=== PATIENT | female | born 1980 | race Caucasian/White ===

== ENCOUNTER 2021-07-16 14:38 | Outpatient (CLI) | payer BC, SELFPAY ==
--- NOTE | ~2021-07-16 | MM_ITS ---
EXAMINATION: MM screening josie BI w chuckie HISTORY: Screening TECHNIQUE: Craniocaudal and mediolateral oblique 3-D tomosynthesis images were obtained and synthetic 2-D images were generated. CAD analysis was submitted and interpreted. COMPARISON: No prior mammogram is available for comparison at this institution. BREAST PARENCHYMAL COMPOSITION: The breasts are heterogeneously dense, which may obscure small masses . FINDINGS: There is a focal subareolar mass of the left breast. There are no suspicious masses, calcif ications or architectural distortion in the right breast to suggest malignancy. IMPRESSION: 1. Subareolar mass of the left breast. 2. Additional mammographic views and possible breast ultrasound are recommended. BI-RADS Category 0: Incomplete: Needs additional imaging evaluation. Reviewed, dictated and finalized at location A. [facility] IMPRESSION: 1. Subareolar mass of the left breast. 2. Additional mammographic views and possible breast ultrasound are recommended . BI-RADS Category 0: Incomplete: Needs additional imaging evaluation.
== END 2021-07-16 14:39 | disposition home or self-care (01) ==
PROVIDERS: PCP Physician Assistant; Visit Provider Obstetrics & Gynecology Gynecology
DX: Z12.31 Encounter for screening mammogram for malignant neoplasm of breast (principal); R92.8 Other abnormal and inconclusive findings on diagnostic imaging of breast
CPT/HCPCS: 77063; 77067

== ENCOUNTER → 2021-07-29 08:46 | Outpatient (CLI) | payer BC, SELFPAY ==
--- NOTE | ~2021-07-29 | MMUS_ITS ---
EXAMINATION: MM diagnostic josie LT w chuckie, US breast LT complete HISTORY: Subareolar left breast mass reported on 07/17/2019 screening mammogram TECHNIQUE: Additional 3-D tomosynthesis images of the left breast were performed and synthetic 2-D im ages were generated. CAD analysis was submitted and interpreted. High resolution complete left breast ultrasound including all 4 quadrants and subareolar area was performed. COMPARISON: 07/16/2021 bilateral screening mammogram FINDINGS: MAMMOGRAPHIC FINDINGS: No suspicious mass or architectural distortion, skin thickening or retraction or any malignant calcif ication is noted. The heterogeneously dense stroma may obscure masses. Complete ultrasound examination was therefore pe rformed. ULTRASOUND: 12:00 3 cm from nipple: 3.8 x 2.5 x 3.9 mm sonolucency without internal vascularity or posterior shad owing, likely benign 1:00 3 cm from nipple: 3.8 x 3.2 x 6.1 mm sonolucency with through transmission, consistent with smal l cyst 9:00 3 cm from nipple: Circumscribed 7.5 x 6.1 x 7.4 mm hypoechoic solid lesion with shadowing, witho ut internal vascularity, likely benign. Six-month follow-up is recommended. 10:00 4 cm from nipple: 2.7 mm hypoechoic circumscribed lesion without shadowing or internal vascular ity IMPRESSION: 1. Probably benign findings 2. 6 month diagnostic left mammogram and left breast ultrasound follow-up are recommended BI-RADS category 3, probably benign findings. Reviewed, dictated and finalized at location A. IMPRESSION: 1. Probably benign findings 2. 6 month diagnostic left mammogram and left breast ultrasound follow-up are r ecommended BI-RADS category 3, probably benign findings.
== END ==
PROVIDERS: Visit Provider Obstetrics & Gynecology Gynecology
DX: R92.8 Other abnormal and inconclusive findings on diagnostic imaging of breast (principal)
CPT/HCPCS: 76641; 77061; 77065; G0279

== ENCOUNTER → 2022-01-28 08:51 | Outpatient (CLI) | payer BC, SELFPAY ==
--- NOTE | ~2022-01-28 | MMUS_ITS ---
EXAMINATION: MM diagnostic josie LT w chuckie, US breast LT limited HISTORY: Six-month follow-up for probably benign left breast mass TECHNIQUE: Craniocaudal, mediolateral, and mediolateral oblique 3-D tomosynthesis images of the left breast were performed and synthetic 2-D images were generated. CAD analysis was submitted and interpr eted. High resolution limited left breast ultrasound was performed. COMPARISON: 07/29/2021, 07/16/2021 BREAST PARENCHYMAL COMPOSITION: The breasts are heterogeneously dense, which may obscure small masses . FINDINGS: MAMMOGRAPHIC FINDINGS: There is an approximately 10 mm oval, obscured mass in the middle third of the central breast 3 cm fr om the nipple best appreciated on the craniocaudal view. No suspicious calcification or architectural distortion are identified. ULTRASOUND: There is a 9 mm x 6 mm oval, hypoechoic mass with mildly lobulated margins, posterior acoustic shadow ing, and no internal vascularity at the 9:00 location 3 cm from the nipple which appears to have slig htly increased in size. Additional cysts are noted at the 9:00 location 3 cm from the nipple. A 3 mm hypoechoic mass at the 10:00 location 4 cm from the nipple is stable. IMPRESSION: 1. Indeterminate mass at the 9:00 location 3 cm from the nipple. 2. Ultrasound-guided biopsy is recommended. BI-RADS category 4, suspicious findings. Reviewed, dictated and finalized at location A. IMPRESSION: 1. Indeterminate mass at the 9:00 location 3 cm from the nipple. 2. Ultrasound-guided biopsy is recommended. BI-RADS category 4, suspicious findings.
== END ==
PROVIDERS: PCP Physician Assistant; Visit Provider Obstetrics & Gynecology Gynecology
DX: N60.02 Solitary cyst of left breast (principal); R92.8 Other abnormal and inconclusive findings on diagnostic imaging of breast
CPT/HCPCS: 76642; 77061; 77065; G0279

== ENCOUNTER 2022-02-11 10:14 | Outpatient (CLI) | payer BC, SELFPAY ==
--- NOTE | ~2022-02-11 | MMUS_ITS ---
EXAMINATION: US breast biopsy LT w image, MM post biopsy invasive LT DATE: 02/11/2022 11:40 (accession [id number]), 02/11/2022 11:30 (accession [id number]) INDICATION: Indeterminate mass of the inner left breast at the 9:00 location. Ultrasound-guided core biopsy is requested to evaluate for malignancy. TECHNIQUE AND FINDINGS: The risks and potential benefits of the procedure were discussed with the patient including bleeding and infection. A time out was performed. The skin of the left breast was prepared and draped in usual sterile fashion. 1% lidocaine was used for superficial anesthesia. 1% lidocaine with epinephrine was used for deep anesthesia. A vacuum-assisted biopsy needle was advanced through to the outer edge of the region of interest from an inferior approach utilizing sonographic guidance. A total of two tissue core samples were obtaine d through the lesion. The lesion was no longer visible after the second pass. A tissue marker clip wa s then placed at the biopsy site. Hemostasis was achieved. A sterile bandage was applied. The patient tolerated procedure well and there was no evidence of immediate complication. The patient was given verbal instructions to return to the Emergency Department in the event of severe breast pa in or rapid breast enlargement. A two view left breast mammogram was obtained to document tissue lucia er clip placement. IMPRESSION: 1. Successful ultrasound-guided vacuum-assisted biopsy of left breast mass with tissue marker placeme nt. Reviewed, dictated and finalized at location A. IMPRESSION: 1. Successful ultrasound-guided vacuum-assisted biopsy of left breast mass with tissue marker placement.
== END 2022-02-11 10:15 | disposition home or self-care (01) ==
PROVIDERS: PCP Physician Assistant; Visit Provider Surgery
DX: N63.20 Unspecified lump in the left breast, unspecified quadrant (principal)
CPT/HCPCS: 19083; 88305; A4648

== ENCOUNTER → 2022-08-31 14:13 | Outpatient (CLI) | payer BC, SELFPAY ==
--- NOTE | ~2022-08-31 | MM_ITS ---
EXAMINATION: MM screening josie BI w chuckie HISTORY: Screening mammogram TECHNIQUE: Craniocaudal and mediolateral oblique 3-D tomosynthesis images were obtained and synthetic 2-D images were generated. CAD analysis was submitted and interpreted. COMPARISON: left breast biopsy 01/28/2022 and 07/25/2021 diagnostic left mammogram and left breast ultrasound 07/16/2021 bilateral screening mammogram BREAST PARENCHYMAL COMPOSITION: The breasts are heterogeneously dense, which may obscure small masses . FINDINGS: Right breast: There appears to be interval increased density in the upper outer right breast. Diagnos tic right mammogram is recommended, with ultrasound if required. Left breast: Biopsy marker on the left; history of prior benign left breast biopsy. There is no evidence of suspicious mass, calcification, or architectural distortion to suggest malign nora in either breast. There has been no suspicious interval change. IMPRESSION: 1. Interval increased density in the upper outer right breast since 07/16/2021 2. Diagnostic right mammogram is recommended, with ultrasound if required BI-RADS Category 0: Incomplete: Needs additional imaging evaluation. Reviewed, dictated and finalized at location A.
== END ==
PROVIDERS: PCP Physician Assistant; Visit Provider Obstetrics & Gynecology Gynecology
DX: Z12.31 Encounter for screening mammogram for malignant neoplasm of breast (principal); R92.8 Other abnormal and inconclusive findings on diagnostic imaging of breast
CPT/HCPCS: 77063; 77067

== ENCOUNTER → 2022-09-27 08:52 | Outpatient (CLI) | payer BC, SELFPAY ==
--- NOTE | ~2022-09-27 | MMUS_ITS ---
EXAMINATION: MM diagnostic josie RT w chuckie, US breast RT limited HISTORY: Focal asymmetry of the left breast on screening mammogram TECHNIQUE: Additional 3-D tomosynthesis images of the right breast were performed and synthetic 2-D i mages were generated. CAD analysis was submitted and interpreted. High resolution limited right breas t ultrasound was performed. COMPARISON: 08/31/2022, 07/17/2011 FINDINGS: MAMMOGRAPHIC FINDINGS: Focal asymmetry in the upper outer quadrant of the right breast somewhat disperses to baseline appear ance with spot compression. No suspicious mass, calcification, or architectural distortion are identi fied. ULTRASOUND: No suspicious cystic or solid mass is identified in the upper outer quadrant of the breast. Small cys ts of the breast measure up to 8 mm near the nipple. IMPRESSION: 1. No mammographic or sonographic evidence of malignancy. 2. Recommend routine screening mammography in one year. BI-RADS Category 2: Benign finding(s). Reviewed, dictated and finalized at location A. IMPRESSION: 1. No mammographic or sonographic evidence of malignancy. 2. Recommend routine screening mammography in one year. BI-RADS Category 2: Benign finding(s).
== END ==
PROVIDERS: PCP Physician Assistant; Visit Provider Obstetrics & Gynecology Gynecology
DX: R92.8 Other abnormal and inconclusive findings on diagnostic imaging of breast (principal)
CPT/HCPCS: 76642; 77061; 77065; G0279

== ENCOUNTER 2023-10-17 15:41 | Outpatient (CLI) | payer BC, SELFPAY ==
--- NOTE | ~2023-10-17 | MM_ITS ---
EXAMINATION: MM screening josie BI w chuckie HISTORY: Screening TECHNIQUE: Craniocaudal and mediolateral oblique 3-D tomosynthesis images were obtained and synthetic 2-D images were generated. CAD analysis was submitted and interpreted. COMPARISON: Comparison to multiple prior studies sequentially, with oldest reviewed study dated 07/16. BREAST PARENCHYMAL COMPOSITION: Dense: The breasts are heterogeneously dense, which may obscure small masses FINDINGS: There is a developing asymmetry in the upper central aspect of the left breast. The right b reast is stable without evidence for malignancy. IMPRESSION: 1. Developing left breast asymmetry. 2. Additional mammographic views and possible breast ultrasound are recommended. BI-RADS Category 0: Incomplete: Needs additional imaging evaluation. Reviewed, dictated and finalized at location B. IMPRESSION: 1. Developing left breast asymmetry. 2. Additional mammographic views and possible breast ultrasound are recommended . BI-RADS Category 0: Incomplete: Needs additional imaging evaluation.
== END 2023-10-17 15:42 ==
LOC: MICIMG 15:41
PROVIDERS: PCP Physician Assistant; Visit Provider Obstetrics & Gynecology Gynecology
DX: Z12.31 Encounter for screening mammogram for malignant neoplasm of breast (principal); R92.8 Other abnormal and inconclusive findings on diagnostic imaging of breast
CPT/HCPCS: 77063; 77067

== ENCOUNTER 2023-12-25 09:20 | Outpatient (CLI) | payer BC, SELFPAY ==
--- NOTE | ~2023-12-25 | MMUS_ITS ---
EXAMINATION: MM diagnostic josie LT w chuckie, US breast LT complete HISTORY: Follow-up left breast asymmetry TECHNIQUE: Additional 3-D tomosynthesis images of the left breast were performed and synthetic 2-D im ages were generated. CAD analysis was submitted and interpreted. High resolution complete left breast ultrasound was performed. COMPARISON: None BREAST PARENCHYMAL COMPOSITION: Dense: The breasts are heterogeneously dense, which may obscure small masses FINDINGS: MAMMOGRAPHIC FINDINGS: The areas of asymmetry are less apparent with spot compression and mediolateral views. No discrete ma ss, suspicious cluster of calcifications or architectural distortion. There is a tissue marker in the lower inner quadrant of the left breast from previous benign biopsy. ULTRASOUND: Complete US of all 4 quadrants of the breast/s and retroareolar region was reviewed. At 2:00, 4 cm fr om the nipple there is a 6 mm cyst. No suspicious masses to suggest malignancy. IMPRESSION: 1. No evidence for malignancy in the left breast. 2. Routine yearly screening mammogram and regular clinical breast examination are recommended. BI-RADS Category 2: Benign finding(s). Reviewed, dictated and finalized at location B. IMPRESSION: 1. No evidence for malignancy in the left breast. 2. Routine yearly screening mammogram and regular clinical breast examination a re recommended. BI-RADS Category 2: Benign finding(s).
== END 2023-12-25 09:21 ==
LOC: MICIMG 09:21
PROVIDERS: PCP Physician Assistant; Visit Provider Nurse Practitioner Women's Health
DX: R92.8 Other abnormal and inconclusive findings on diagnostic imaging of breast (principal)
CPT/HCPCS: 76641; 77061; 77065; G0279